=== PATIENT | female | born 1955 | race Caucasian/White ===

== ENCOUNTER 2017-02-25 08:50 | Day surgery (SDC) | payer BC, OTHER ==
[~2017-02-25 08:50] MED LIST: Bupivacaine 0.5% 10 ML SDV ONE; Lactated Ringers 1,000 ML IV SCH; Lidocaine 1% 20 ML MDV ONE
--- NOTE | 2017-02-25 09:45 | PCM.PREANE ---
Preanesthetic Assessment - Anesthesia/Transfusion/Family Hx Anesthesia History: Prior Anesthesia Without Reaction Family History of Anesthesia Reaction: No Transfusion History: No Prior Transfusion(s) Intubation History: Unknown - Review of Systems General: No Symptoms Pulmonary: No Symptoms Cardiovascular: No Symptoms Gastrointestinal: No symptoms Neurological: No Symptoms Other: Reports: None - Physical Assessment O2 Sat by Pulse Oximetry: 100 Respiratory Rate: 16 Vital Signs: Last Vital Signs Temp 36.6 C 02/25/17 09:07 Pulse 82 02/25/17 09:07 Resp 16 02/25/17 09:07 BP 141/70 H 02/25/17 09:07 Pulse Ox 100 02/25/17 09:07 Height: 1.75 m Weight: 68.492 kg ASA Class: 2 Mental Status: Alert & Oriented x3 Airway Class: Mallampati = 2 Dentition: Reports: Normal Dentition, Partial (upper left (removed)) Thyro-Mental Finger Breadths: 3 Mouth Opening Finger Breadths: 3 ROM/Head Extension: Full Lungs: Clear to auscultation, Normal respiratory effort Cardiovascular: Regular Rate, Regular Rhythm - Allergies Allergies/Adverse Reactions: Allergies Allergy/AdvReac Type Severity Reaction Status Date / Time bupropion [From Wellbutrin] Allergy Rash Verified 02/20/17 16:12 denosumab [From Prolia] Allergy Airway Verified 02/20/17 16:12 Tightness ibuprofen Allergy Rash Verified 02/20/17 16:11 latex Allergy Rash Verified 02/20/17 16:11 risedronate sodium Allergy Airway Verified 02/20/17 16:12 [From Actonel] Tightness deer fly bites Allergy Anaphylactic Uncoded 02/20/17 16:11 Shock - Blood Blood Available: No - Anesthesia Plan Pre-Op Medication Ordered: None - Acknowledgements Anesthesia Type Planned: MAC Pt an Appropriate Candidate for the Planned Anesthesia: Yes Alternatives and Risks of Anesthesia Discussed w Pt/Guardian: Yes Pt/Guardian Understands and Agrees with Anesthesia Plan: Yes PreAnesthesia Questionnaire HEENT History: Reports: Hard of Hearing Other HEENT History: uses reading glasses, has upper partial removable denture , has bilateral hearing aides Cardiovascular History: Reports: None Respiratory History: Reports: COPD Other Respiratory History: has a rescue inhaler but "rarely" uses it Gastrointestinal History: Reports: None Genitourinary History: Reports: Renal 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: Musculoskeletal History: Reports: Back Pain, Chronic, Fracture, Osteoporosis Other Musculoskeletal History: has had cervical vertebrate fx Neurological History: Reports: None Psychiatric History: Reports: None Endocrine/Metabolic History: Reports: None Hematologic History: Reports: None Immunologic History: Reports: None Oncologic (Cancer) History: Reports: None Dermatologic History: Reports: None - Past Surgical History Head Surgeries/Procedures: Reports: None HEENT Surgical History: Reports: None Cardiovascular Surgical History: Reports: None Respiratory Surgical History: Reports: None GI Surgical History: Reports: Colonoscopy Female Surgical History: Reports: Hysterectomy, Salpingo-Oophorectomy, Other (See Below) Other Female Surgeries/Procedures: aspiration of left breast cyst x2 Endocrine Surgical History: Reports: None Neurological Surgical History: Reports: None Musculoskeletal Surgical History: Reports: None Oncologic Surgical History: Reports: None Dermatological Surgical History: Reports: None - SUBSTANCE USE Smoking Status *Q: Former Smoker (quit 5 years ago) Tobacco Use Within Last Twelve Months: No Recreational Drug Use History: No - HOME MEDS Home Medications: Home Meds Albuterol [Proventil HFA] 1 puff INH ASDIRECTED PRN 02/20/17 [History] Calcium Carbonate [Calcium] 1,000 mg PO BID 02/20/17 [History] Cyanocobalamin (Vitamin B-12) [Vitamin B-12] 2,500 mcg PO DAILY 02/20/17 [ History] Estradiol [Vagifem] 1 tab VAG ASDIRECTED 02/20/17 [History] Gluc 2KCl/Chondr/Caleb Hy/Hy Ac [Glucosamine & Chondroitin Cap] 1 cap PO DAILY [History] Multivitamin W-Minerals/Lutein [Vision Plus Lutein Vitamin] 1 tab PO DAILY 02/20 [History] [place]-3 Fatty Acids/Fish Oil [Fish Oil 1,200 mg Softgel] 1,200 mg PO BID [History] traMADol [Ultram] 50 mg PO Q6H PRN 02/20/17 [History] - CURRENT (IN HOUSE) MEDS Current Meds: Current Medications Lactated Ringer's (Ringers, Lactated) 1,000 mls @ 125 mls/hr IV ASDIRECTED [facility] Last Admin: 02/25/17 09:10 Dose: 125 mls/hr Discontinued Medications Bupivacaine HCl (Sensorcaine-Mpf 0.5%) Confirm Administered Dose 30 ml .ROUTE .STK-MED ONE Stop: 02/25/17 08:14 Lidocaine HCl (Xylocaine 1%) Confirm Administered Dose 20 ml .ROUTE .STK-MED ONE Stop: 02/25/17 08:14
[2017-02-25] MEDS ORDERED: Midazolam 1 MG/ML 2 ML SDV ONE (10:39)
[2017-02-25] MEDS ORDERED: Lidocaine 2% 5 ML SDV ONE (10:39)
[2017-02-25] MEDS ORDERED: fentaNYL 250 MCG/5 ML SDV ONE (10:39)
[2017-02-25] MEDS ORDERED: Propofol 200 MG/20 ML SDV ONE (10:39)
[2017-02-25] MEDS ORDERED: Ondansetron 4 MG/2 ML SDV ONE (10:46)
[2017-02-25] MEDS ORDERED: ePHEDrine 50 MG/ML SDV ONE (11:37)
[2017-02-25] MEDS ORDERED: Acetaminophen/HYDROcodone 325-5 MG Tab PO PRN (12:01)
[2017-02-25] MEDS ORDERED: Morphine 10 MG/ML Syringe IVPUSH PRN (12:01)
--- NOTE | 2017-02-25 12:04 | PCM.OPNOTE ---
- General Post-Op/Procedure Note Date of Surgery/Procedure: 02/25/17 Operative Procedure(s): Excision 3 cm x 4 cm left flank mass Pre Op Diagnosis: Enlarging left flank mass Anesthesia Technique: General LMA (ASA II) Primary Surgeon: Mathieu Mi Fluid Replacement, Intraop: 800 EBL in mLs: 5 Condition: Good
[2017-02-25] MEDS ORDERED: fentaNYL 100 MCG/2 ML SDV IVPUSH PRN (12:06)
[2017-02-25] MEDS ORDERED: Lactated Ringers 1,000 ML IV SCH (12:15)
[2017-02-25 13:28] VITALS: BP 132/85
--- NOTE | 2017-02-25 20:20 | OR ---
SURGEON: Mathieu Mi M.D. DATE OF PROCEDURE: 02/25/2017 OPERATION PERFORMED: Excision of 3 cm x 4 cm left flank mass. ANESTHESIA: General LMA. ASA CLASSIFICATION: II. PREOPERATIVE DIAGNOSIS: Enlarging left flank mass. POSTOPERATIVE DIAGNOSIS: Enlarging left flank mass. ESTIMATED BLOOD LOSS: 5 mL. INTRAOPERATIVE FLUID REPLACEMENT: 800 mL of crystalloid. DESCRIPTION OF PROCEDURE: The patient was taken to the operating room and placed on the operating table in the supine position. Surgical site had been marked prior to the patient entering the operating room. Thigh-high TEDs and sequential compression boots were placed. Following satisfactory attainment of general anesthesia with placement of an LMA, the patient was placed in the right lateral decubitus position on the beanbag. Care was taken to pad all bony prominences. The surgical site was then prepped with DuraPrep solution. Sterile drapes were applied. The skin incision was marked out and infiltrated with 1% Xylocaine and 0.5% Marcaine solution. The skin incision was made and deepened through the subcutaneous tissue obtaining hemostasis with the use of electrocautery. The mass was easily identified and using electrocautery was dissected free. Clinically, this had the appearance of a lipoma. The surgical site was inspected for hemostasis and small bleeding points were electrocoagulated. The incision was closed in 2 layers approximating the subcutaneous tissue with 3-0 Polysorb and the skin with subcuticular 4-0 Monocryl. Steri-Strips were placed over the skin followed by Tegaderm dressing. Sponge, needle, and instrument counts were all correct. The patient tolerated the procedure well. She was then returned to the supine position. Following emergence from anesthesia and extubation, she was taken to the recovery room in stable condition. CARSON MCKNIGHT /[id number]
== END 2017-02-25 13:11 | disposition home or self-care (01) ==
LOC: MW.SDS 08:50
PROVIDERS: ATTEND Surgery
PROC: 0JB70ZZ Excision of Back Subcutaneous Tissue and Fascia, Open Approach (ICD-10-PCS; principal; 2017-02-25)
DX: D17.1 Benign lipomatous neoplasm of skin and subcutaneous tissue of trunk (principal); J44.9 Chronic obstructive pulmonary disease, unspecified; M81.0 Age-related osteoporosis without current pathological fracture; Z87.891 Personal history of nicotine dependence; Z87.442 Personal history of urinary calculi; Z88.6 Allergy status to analgesic agent; Z88.8 Allergy status to other drugs, medicaments and biological substances; Z91.040 Latex allergy status; Z79.899 Other long term (current) drug therapy; Z90.710 Acquired absence of both cervix and uterus; Z90.721 Acquired absence of ovaries, unilateral; Z90.79 Acquired absence of other genital organ(s); Z98.890 Other specified postprocedural states
CPT/HCPCS: 21931; J2250; J2405; J3010; J7120; 00400; 88304; J2704

== ENCOUNTER 2019-06-01 07:37 | Day surgery (SDC) | payer MEDICARE, OTHER ==
[~2019-06-01 07:37] MED LIST changes: -Bupivacaine 0.5% 10 ML SDV ONE; +Glycopyrrolate 0.2 MG/ML SDV ONE; -Lidocaine 1% 20 ML MDV ONE; +Midazolam 1 MG/ML 2 ML SDV ONE; +Propofol 200 MG/20 ML SDV ONE
--- NOTE | 2019-06-01 08:06 | PCM.PREANE ---
Preanesthetic Assessment - Anesthesia/Transfusion/Family Hx Anesthesia History: Prior Anesthesia Without Reaction Family History of Anesthesia Reaction: No Transfusion History: No Prior Transfusion(s) Intubation History: Unknown - Review of Systems General: No Symptoms Pulmonary: No Symptoms Cardiovascular: No Symptoms Gastrointestinal: Other (epigastric pain) Neurological: No Symptoms Other: Reports: None - Physical Assessment Vital Signs: Last Vital Signs Temp 36.6 C 06/01/19 07:51 Pulse 81 06/01/19 07:51 Resp 15 06/01/19 07:51 BP 119/70 06/01/19 07:51 Pulse Ox 100 06/01/19 07:51 Height: 5 ft 9 in Weight: 64.864 kg ASA Class: 2 Mental Status: Alert & Oriented x3 Airway Class: Mallampati = 2 Dentition: Reports: Partial (upper left, removed) Thyro-Mental Finger Breadths: 3 Mouth Opening Finger Breadths: 3 ROM/Head Extension: Full Lungs: Clear to Auscultation, Normal Respiratory Effort Cardiovascular: Regular Rate, Regular Rhythm - Allergies Allergies/Adverse Reactions: Allergies Allergy/AdvReac Type Severity Reaction Status Date / Time bupropion [From Wellbutrin] Allergy Rash Verified 05/27/19 13:37 denosumab [From Prolia] Allergy Airway Verified 05/27/19 13:37 Tightness ibuprofen Allergy Rash Verified 05/27/19 13:37 risedronate sodium Allergy Airway Verified 05/27/19 13:37 [From Actonel] Tightness deer fly bites Allergy Anaphylactic Uncoded 02/20/17 16:11 Shock - Blood Blood Available: No - Anesthesia Plan Pre-Op Medication Ordered: None - Acknowledgements Anesthesia Type Planned: MAC Pt an Appropriate Candidate for the Planned Anesthesia: Yes Alternatives and Risks of Anesthesia Discussed w Pt/Guardian: Yes Pt/Guardian Understands and Agrees with Anesthesia Plan: Yes PreAnesthesia Questionnaire HEENT History: Reports: Hard of Hearing Other HEENT History: uses reading glasses, has upper partial removable denture , has bilateral hearing aides Cardiovascular History: Reports: None Respiratory History: Reports: COPD (moderate) Other Respiratory History: does not have inhaler-outdated Gastrointestinal History: Reports: Other (See Below) Other Gastrointestinal History: left epigastric pain Genitourinary History: Reports: Renal 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: Musculoskeletal History: Reports: Back Pain, Chronic, Fracture, Osteoporosis Other Musculoskeletal History: has had cervical vertebrate fx Neurological History: Reports: None Psychiatric History: Reports: None Endocrine/Metabolic History: Reports: None Hematologic History: Reports: None Immunologic History: Reports: None Oncologic (Cancer) History: Reports: None Dermatologic History: Reports: None - Past Surgical History Head Surgeries/Procedures: Reports: None HEENT Surgical History: Reports: None Cardiovascular Surgical History: Reports: None Respiratory Surgical History: Reports: None GI Surgical History: Reports: Colonoscopy Female Surgical History: Reports: Hysterectomy, Salpingo-Oophorectomy, Other (See Below) Other Female Surgeries/Procedures: aspiration of left breast cyst x2 Endocrine Surgical History: Reports: None Neurological Surgical History: Reports: None Musculoskeletal Surgical History: Reports: None Oncologic Surgical History: Reports: None Dermatological Surgical History: Reports: Other (See Below) (lipoma excision) - SUBSTANCE USE Smoking Status *Q: Former Smoker (quit 08/24) Tobacco Use Within Last Twelve Months: No Recreational Drug Use History: No - HOME MEDS Home Medications: Home Meds Calcium Carbonate [Calcium] 1,000 mg PO BID 02/20/17 [History] Cyanocobalamin (Vitamin B-12) [Vitamin B-12] 2,500 mcg PO DAILY 02/20/17 [ History] Estradiol [Vagifem] 1 tab VAG ASDIRECTED 02/20/17 [History] Gluc 2KCl/Chondr/Caleb Hy/Hy Ac [Glucosamine & Chondroitin Cap] 1 cap PO DAILY [History] Multivitamin W-Minerals/Lutein [Vision Plus Lutein Vitamin] 1 tab PO DAILY 02/20 [History] [place]-3 Fatty Acids/Fish Oil [Fish Oil 1,200 mg Softgel] 1,200 mg PO BID [History] traMADol [Ultram] 50 mg PO Q6H PRN 02/20/17 [History] Cetirizine HCl [Zyrtec] 10 mg PO DAILY PRN 05/27/19 [History] Esomeprazole Magnesium [Nexium] 40 mg PO DAILY 05/27/19 [History] - CURRENT (IN HOUSE) MEDS Current Meds: Current Medications Lactated Ringer's (Ringers, Lactated) 1,000 mls @ 125 mls/hr IV ASDIRECTED [facility] Last Admin: 06/01/19 07:55 Dose: 125 mls/hr Discontinued Medications Glycopyrrolate (Robinul) Confirm Administered Dose 1.4 mg .ROUTE .STK-MED ONE Stop: 06/01/19 07:29 Glycopyrrolate (Robinul) Confirm Administered Dose 0.2 mg .ROUTE .STK-MED ONE Stop: 06/01/19 07:32 Midazolam HCl (Versed 1 Mg/Ml) Confirm Administered Dose 2 mg .ROUTE .STK-MED ONE Stop: 06/01/19 07:27 Midazolam HCl (Versed 1 Mg/Ml) Confirm Administered Dose 2 mg .ROUTE .STK-MED ONE Stop: 06/01/19 07:35 Propofol (Diprivan 20 Ml) Confirm Administered Dose 200 mg .ROUTE .STK-MED ONE Stop: 06/01/19 07:27 Propofol (Diprivan 20 Ml) Confirm Administered Dose 400 mg .ROUTE .STK-MED ONE Stop: 06/01/19 07:35
--- NOTE | 2019-06-01 09:05 | PCM.OPNOTE ---
- General Post-Op/Procedure Note Date of Surgery/Procedure: 06/01/19 Operative Procedure(s): Esophagogastroduodenoscopy with antral biopsies Pre Op Diagnosis: Epigastric and left upper quadrant pain. Unexplained weight loss. Post-Op Diagnosis: Acute and chronic gastritis with superficial gastric ulcers. Narrowing of the pyloric channel. Anesthesia Technique: MAC (ASA II) Primary Surgeon: Mathieu Mi Condition: Good Free Text/Narrative:: DICTATION [id number] CPT CODE 58575
[2019-06-01] MEDS ORDERED: Lactated Ringers 1,000 ML IV SCH (09:15)
--- NOTE | 2019-06-01 09:24 | PCM.POSTAN ---
POST ANESTHESIA ASSESSMENT - MENTAL STATUS Mental Status: Alert, Oriented - VITAL SIGNS Vital Signs: Last Vital Signs Temp 36.6 C 06/01/19 07:51 Pulse 102 H 06/01/19 09:17 Resp 13 06/01/19 09:17 BP 117/70 06/01/19 09:17 Pulse Ox 93 L 06/01/19 09:17 - RESPIRATORY Respiratory Status: Respiratory Rate WNL, Airway Patent, O2 Saturation Stable - CARDIOVASCULAR CV Status: Pulse Rate WNL, Blood Pressure Stable - GASTROINTESTINAL GI Status: No Symptoms - PAIN Pain Score: 0 - POST OP HYDRATION Hydration Status: Adequate & Stable - OBSERVATIONS Free Text/Narrative:: no anesthesia problems
[2019-06-01 09:51] VITALS: BP 106/79
--- NOTE | 2019-06-01 09:56 | PCM48HPAN ---
Post Anesthesia Note - EVALUATION WITHIN 48HRS OF ANESTHETIC Vital Signs in Normal Range: Yes Patient Participated in Evaluation: Yes Respiratory Function Stable: Yes Airway Patent: Yes Cardiovascular Function Stable: Yes Hydration Status Stable: Yes Pain Control Satisfactory: Yes Nausea and Vomiting Control Satisfactory: Yes Mental Status Recovered: Yes Vital Signs: Last Vital Signs Temp 36.6 C 06/01/19 07:51 Pulse 97 06/01/19 09:25 Resp 14 06/01/19 09:25 BP 106/79 06/01/19 09:25 Pulse Ox 97 06/01/19 09:25 - COMMENTS/OBSERVATIONS Free Text/Narrative:: no anesthesia problems
--- NOTE | 2019-06-01 14:53 | OR ---
SURGEON: Mathieu Mi M.D. DATE OF PROCEDURE: 06/01/2019 OPERATION PERFORMED: Esophagogastroduodenoscopy with biopsy. ANESTHESIA: MAC. ASA CLASSIFICATION: II. PREOPERATIVE DIAGNOSES: 1. Left upper quadrant pain. 2. Unexplained weight loss. 3. Abnormal CT scan with thickening of the distal stomach. POSTOPERATIVE DIAGNOSIS: Acute gastritis with multiple superficial ulcers. Pyloric channel is somewhat narrowed. DESCRIPTION OF PROCEDURE: The patient was taken to the endoscopy room, positioned on the endoscopy table in the supine position. Time-out was called for appropriate identification of the patient and procedure. Monitored anesthesia care was provided. The bite block was placed between the patient's teeth. The gastroscope was inserted through the bite block and advanced into the oropharynx without difficulty. The scope was then advanced into the esophagus and manipulated down through the distal stomach into the duodenum where examination was now carried out in a retrograde fashion. Duodenum does show some mild inflammatory changes. No acute ulceration was noted. Stomach does demonstrate multiple superficial gastric ulcers. Antral biopsies were obtained to look for the presence of Helicobacter pylori. The gastroscope was retroflexed to visualize the proximal stomach. No mid or proximal lesions were identified. The gastroscope was then straightened and slowly withdrawn. The GE junction is quite well defined and shows no acute inflammatory changes or ulcerations. The esophagus itself demonstrates good contractility. Again, no mid or proximal lesions were identified. The vocal cords were briefly visualized as the scope was withdrawn and noted to move symmetrically. The gastroscope was then removed with the patient having tolerated the procedure well. She was taken to recovery room in stable condition. CARSON / JUAN LUIS /[id number]
== END 2019-06-01 09:50 | disposition home or self-care (01) ==
LOC: MW.SDS 07:37
PROVIDERS: ATTEND Surgery
DX: K29.50 Unspecified chronic gastritis without bleeding (principal); K25.9 Gastric ulcer, unspecified as acute or chronic, without hemorrhage or perforation; J44.9 Chronic obstructive pulmonary disease, unspecified; M81.0 Age-related osteoporosis without current pathological fracture; R63.4 Abnormal weight loss; F17.210 Nicotine dependence, cigarettes, uncomplicated; Z88.6 Allergy status to analgesic agent; Z91.040 Latex allergy status; Z91.09 Other allergy status, other than to drugs and biological substances; Z79.899 Other long term (current) drug therapy
CPT/HCPCS: 43239; J2250; J2704; J3490; J7120; 00731; 88305; 88312

== ENCOUNTER 2021-07-07 08:10 | Day surgery (SDC) | payer MEDICARE, OTHER ==
[~2021-07-07 08:10] MED LIST changes: -Glycopyrrolate 0.2 MG/ML SDV ONE; +Lidocaine 2% 5 ML SDV ONE; -Midazolam 1 MG/ML 2 ML SDV ONE; -Propofol 200 MG/20 ML SDV ONE; +propofoL 50 ML ONE
--- NOTE | 2021-07-07 09:41 | PCM.PREANE ---
Preanesthetic Assessment - Procedure Proposed Procedure: EGD/Colonoscopy - Anesthesia/Transfusion/Family Hx Anesthesia History: Prior Anesthesia Without Reaction Family History of Anesthesia Reaction: No Transfusion History: No Prior Transfusion(s) Intubation History: Unknown - Review of Systems General: No Symptoms Pulmonary: No Symptoms (Quit smoking x 5yrs, COPD) Cardiovascular: No Symptoms Gastrointestinal: No Symptoms (GERD) Neurological: No Symptoms Other: Reports: Thyroid Problems (Hypothyroid) - Physical Assessment NPO Status Date: 07/05/21 NPO Status Time: 17:30 (Solid, >8hrs Liq) Vital Signs: Last Vital Signs Temp 96.3 F L 07/07/21 08:32 Pulse 86 07/07/21 08:32 Resp 15 07/07/21 08:32 BP 123/77 07/07/21 08:32 Pulse Ox 98 07/07/21 08:32 Height: 5 ft 10 in Weight: 66.678 kg ASA Class: 2 Mental Status: Alert & Oriented x3 Airway Class: Mallampati = 2 Dentition: Reports: Normal Dentition Thyro-Mental Finger Breadths: 3 Mouth Opening Finger Breadths: 3 ROM/Head Extension: Full Lungs: Clear to Auscultation, Normal Respiratory Effort Cardiovascular: Regular Rate, Regular Rhythm - Allergies Allergies/Adverse Reactions: Allergies Allergy/AdvReac Type Severity Reaction Status Date / Time bupropion [From Wellbutrin] Allergy Rash Verified 07/03/21 09:45 denosumab [From Prolia] Allergy Airway Verified 07/03/21 09:45 Tightness ibuprofen Allergy Rash Verified 07/03/21 09:45 latex Allergy Cannot Verified 07/03/21 11:08 Remember risedronate sodium Allergy Airway Verified 07/03/21 09:45 [From Actonel] Tightness deer fly bites Allergy Anaphylactic Uncoded 07/03/21 09:45 Shock - Acknowledgements Anesthesia Type Planned: General Anesthesia Pt an Appropriate Candidate for the Planned Anesthesia: Yes Alternatives and Risks of Anesthesia Discussed w Pt/Guardian: Yes Pt/Guardian Understands and Agrees with Anesthesia Plan: Yes PreAnesthesia Questionnaire HEENT History: Reports: Hard of Hearing, Other (See Below) Other HEENT History: wears glasses, has upper partial removable denture, has bilateral hearing aides Cardiovascular History: Reports: Other (See Below) Other Cardiovascular History: "slight murmur" Respiratory History: Reports: COPD Other Respiratory History: does not have inhaler Gastrointestinal History: Reports: Gastritis, GERD, Other (See Below) Other Gastrointestinal History: PUD, hx gastric ulcers Genitourinary History: Reports: Renal 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: Musculoskeletal History: Reports: Back Pain, Chronic, Fracture, Osteoporosis Other Musculoskeletal History: has had cervical vertebrate fx Neurological History: Reports: None Psychiatric History: Reports: None Endocrine/Metabolic History: Reports: Hypothyroidism Hematologic History: Reports: None Immunologic History: Reports: None Oncologic (Cancer) History: Reports: None Dermatologic History: Reports: None - Past Surgical History Head Surgeries/Procedures: Reports: None HEENT Surgical History: Reports: None Cardiovascular Surgical History: Reports: None Respiratory Surgical History: Reports: None GI Surgical History: Reports: Colonoscopy, EGD Female Surgical History: Reports: Breast Biopsy, Hysterectomy, Salpingo- Oophorectomy, Other (See Below) Other Female Surgeries/Procedures: aspiration of left breast cyst x2 Endocrine Surgical History: Reports: None Neurological Surgical History: Reports: None Musculoskeletal Surgical History: Reports: Arthroscopic Knee Oncologic Surgical History: Reports: None Dermatological Surgical History: Reports: Other (See Below) - SUBSTANCE USE Tobacco Use Status *Q: Former Tobacco User Tobacco Use Within Last Twelve Months: No - HOME MEDS Home Medications: Home Meds Calcium Carbonate [Calcium] 1,000 mg PO BID 02/20/17 [History] Cyanocobalamin (Vitamin B-12) [Vitamin B-12] 2,500 mcg PO DAILY 02/20/17 [History] Glucosam/Chondr/Collagn/Hyalur [Glucosamine & Chondroitin Cap] 1 cap PO DAILY 02/20/17 [History] [place]-3 Fatty Acids/Fish Oil [Fish Oil 1,200 mg Softgel] 1,200 mg PO BID 02/20/17 [History] estradioL [Vagifem] 1 tab VAG ASDIRECTED 02/20/17 [History] Esomeprazole Magnesium [Nexium] 40 mg PO DAILY 05/27/19 [History] Sucralfate [Carafate] 1 gm PO QIDACANDBED 30 Days #120 tab 06/01/19 [Rx] Levothyroxine [Synthroid] 88 mcg PO DAILY 07/03/21 [History] Montelukast Sodium 10 mg PO BEDTIME 07/03/21 [History] Vits A,C,E/Lutein/Minerals [Vision Formula with Lutein Tab] 1 tab PO DAILY 07/03/21 [History] - CURRENT (IN HOUSE) MEDS Current Meds: Current Medications Lactated Ringer's (Ringers, Lactated) 1,000 mls @ 125 mls/hr IV ASDIRECTED [facility] Last Admin: 07/07/21 08:38 Dose: 125 mls/hr Documented by: Discontinued Medications Propofol (Diprivan 50 Ml) Confirm Administered Dose 50 mls @ as directed .ROUTE .STK-MED ONE Stop: 07/07/21 07:37 Lidocaine (Lidocaine 2% 5 Ml Sdv) Confirm Administered Dose 5 ml .ROUTE .STK-MED ONE Stop: 07/07/21 07:37
[2021-07-07] MEDS ORDERED: Propofol 200 MG/20 ML SDV ONE ×2 (11:47→12:00)
--- NOTE | 2021-07-07 12:31 | PCM.POSTAN ---
POST ANESTHESIA ASSESSMENT - MENTAL STATUS Mental Status: Somnolent - VITAL SIGNS Vital Signs: Last Vital Signs Temp 96.3 F L 07/07/21 08:32 Pulse 86 07/07/21 08:32 Resp 15 07/07/21 08:32 BP 123/77 07/07/21 08:32 Pulse Ox 98 07/07/21 08:32 - RESPIRATORY Respiratory Status: Respiratory Rate WNL, Airway Patent, O2 Saturation Stable - CARDIOVASCULAR CV Status: Pulse Rate WNL, Blood Pressure Stable - GASTROINTESTINAL GI Status: No Symptoms, Nauseau - PAIN Free Text/Narrative:: Resting comfortably - POST OP HYDRATION Hydration Status: Adequate & Stable
--- NOTE | 2021-07-07 12:34 | PCM48HPAN ---
Post Anesthesia Note - EVALUATION WITHIN 48HRS OF ANESTHETIC Vital Signs in Normal Range: Yes Patient Participated in Evaluation: Yes Respiratory Function Stable: Yes Airway Patent: Yes Cardiovascular Function Stable: Yes Hydration Status Stable: Yes Pain Control Satisfactory: Yes Nausea and Vomiting Control Satisfactory: Yes Mental Status Recovered: Yes Vital Signs: Last Vital Signs Temp 96.3 F L 07/07/21 08:32 Pulse 86 07/07/21 08:32 Resp 15 07/07/21 08:32 BP 123/77 07/07/21 08:32 Pulse Ox 98 07/07/21 08:32 - COMMENTS/OBSERVATIONS Free Text/Narrative:: Pt doing well post-op. VSS. No apparent anesthetic complications. Dr. Bakari Gagnon
[2021-07-07 12:44] VITALS: PULSE 77
[2021-07-07 12:49] VITALS: BP 113/59
[2021-07-07] MEDS ORDERED: Lactated Ringers 1,000 ML IV SCH (13:30)
--- NOTE | 2021-07-07 13:35 | PCM.OPNOTE ---
- General Post-Op/Procedure Note Date of Surgery/Procedure: 07/07/21 Operative Procedure(s): Esophagogastroduodenoscopy with gastric and esophageal biopsies. Colonoscopy. Pre Op Diagnosis: Melanotic stool with epigastric pain. Rectal bleeding with left-sided abdominal pain. 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 No evidence of colonic neoplasia. Anesthesia Technique: MAC (ASA II) Primary Surgeon: Mathieu Mi Tool And Die Designer: Ralph Manrique Condition: Stable Free Text/Narrative:: Intake & Output 07/07/21 07/07/21 07/07/21 03:59 11:59 19:59 Intake Total 650 Balance 650 DICTATION [id number] CPT CODE [id number]/[id number]
--- NOTE | 2021-07-07 16:00 | OR ---
SURGEON: Mathieu Mi M.D. DATE OF PROCEDURE: 07/07/2021 OPERATION PERFORMED: Esophagogastroduodenoscopy with gastric and esophageal biopsies. PRIMARY SURGEON: Mathieu Mi M.D. MS ACCESS DATABASE DEVELOPER: Waiter/Waitress Counter: EDWIN Luciano student. ANESTHESIA: MAC. ASA CLASSIFICATION: II. PREOPERATIVE DIAGNOSES: 1. Dark tarry stools. 2. Nausea. 3. Back pain. POSTOPERATIVE DIAGNOSES: 1. Inability to advance the gastroscope beyond the pylorus secondary to presumed scarring. 2. Gastritis. 3. Esophagitis. DESCRIPTION OF PROCEDURE: The patient was taken to the endoscopy room and positioned on the endoscopy table in the left lateral decubitus position. Time-out was called for appropriate identification of the patient and procedure. Monitored anesthesia care was provided. The bite block was placed between the patient's teeth. The gastroscope was inserted through the bite block and advanced into the esophagus and subsequently to the distal stomach. Despite multiple maneuvers and attempts, I could never advance the gastroscope through the pylorus. I could not see any acute ulceration, but it did appear that the pylorus was small, suggesting perhaps chronic peptic ulcer disease. No blood was seen in the stomach. Antral biopsies were obtained to look for the presence of Helicobacter pylori. The gastroscope was then retroflexed to visualize the proximal stomach. No significant hiatal hernia was noted; and no ulcers, tumors, or polyps were noted in the proximal stomach. The gastroscope was then straightened and slowly withdrawn. The GE junction was well defined, but did show some acute inflammatory changes without ulceration. Separate biopsies of the distal esophagus were obtained. The esophagus itself demonstrated good contractility. No mid or proximal lesions were identified. As the scope was withdrawn, the vocal cords were briefly visualized and noted to move symmetrically. There were no vocal cord lesions. The gastroscope was then removed with the patient having tolerated this portion of the procedure well. Following colonoscopy, she was taken to recovery room in stable condition. CARSON / JUAN LUIS /[id number]
--- NOTE | 2021-07-07 16:06 | OR ---
SURGEON: Mathieu Mi M.D. DATE OF PROCEDURE: 07/07/2021 OPERATION PERFORMED: Colonoscopy. PRIMARY SURGEON: Mathieu Mi M.D. RETAIL ASSISTANT STORE MANAGER: Planner Chief: EDWIN Luciano student. ANESTHESIA: MAC. PREOPERATIVE DIAGNOSIS: Blood in the stool with left-sided abdominal pain. POSTOPERATIVE DIAGNOSIS: No evidence of neoplasia. DESCRIPTION OF PROCEDURE: With the patient having completed upper GI endoscopy, she was maintained in the left lateral decubitus position. The colonoscope was inserted into the rectum and advanced with significant difficulty to the cecum. The cecum was identified by internal landmarks and external pressure. The colonoscope was retroflexed to visualize the ascending colon from below and then straightened and slowly withdrawn. The cecum, ascending colon, hepatic flexure, transverse colon, splenic flexure, descending colon, sigmoid colon, and rectum were very well visualized. No tumors, polyps, diverticula, or angiodysplastic changes were noted anywhere in the lower gastrointestinal tract. Once the colonoscope was withdrawn to the rectum, it was retroflexed to visualize the anal orifice from above. Again, no tumors or polyps were seen, and there were no acute hemorrhoidal changes. The colonoscope was then straightened, the rectum aspirated, and the colonoscope removed. The patient tolerated the procedure well and was taken to recovery room in stable condition. CARSON / JUAN LUIS /[id number]
== END 2021-07-07 13:29 | disposition home or self-care (01) ==
LOC: MW.SDS 08:10
PROVIDERS: ATTEND Surgery
DX: K29.50 Unspecified chronic gastritis without bleeding (principal); K20.90 Esophagitis, unspecified without bleeding; K22.70 Barrett's esophagus without dysplasia; J44.9 Chronic obstructive pulmonary disease, unspecified; M81.0 Age-related osteoporosis without current pathological fracture; E03.9 Hypothyroidism, unspecified; Z88.8 Allergy status to other drugs, medicaments and biological substances; Z91.040 Latex allergy status; Z79.899 Other long term (current) drug therapy; Z98.890 Other specified postprocedural states; Z87.891 Personal history of nicotine dependence
CPT/HCPCS: 43202; 88305; 88342; J2704; J7120